=== PATIENT | male | born 1940 | race Caucasian/White ===

== ENCOUNTER → 2016-10-06 | Outpatient (CLI) | payer MEDICARE ==
[~2016-10-06] MED LIST: ALLEREST PO; ASPI-496 PO; CHOL500014 PO; DIGOXIN PO; ENALAPRIL PO; ENOX30SY4 SQ; ERGO500017 PO; GLYB5TAB3 PO; METF500T4 PO; MULT-658 PO; REGADENOSON 0.4 MG/5 ML SYRINGE ONE; SENN25TA21 PO; WARF10TA6 PO; WARF7.5T PO
== END | disposition home or self-care (01) ==
LOC: CFH 11:53
PROVIDERS: ATTEND Family Medicine
DX: I48.0 Paroxysmal atrial fibrillation (principal); R06.02 Shortness of breath
CPT/HCPCS: 78452; 93017; A9502; J2785

== ENCOUNTER → 2016-11-10 | Outpatient (CLI) | payer MEDICARE ==
[2016-11-09 10:11] VITALS: BP 163/73
[2016-11-09 10:54] LABS: BLOOD UREA NITROGEN 11 mg/dL (7-18)
[~2016-11-10] VITALS: Ht 185.4 cm; Wt 110.9 kg
[~2016-11-10] MED LIST changes: +AMIO200T42 PO; +APIX5TAB PO; +ASPI-621 PO; +ATOR10TA PO; +DIGO125T PO; +ENAL10TA PO; +GLIP5TAB10 PO; +KETO15CR TP; +METO25TA35 PO; +OXYC-302 PO; +OXYC1TAB7 PO; -REGADENOSON 0.4 MG/5 ML SYRINGE ONE; +SODIUM CHLORIDE 0.9% 1,000 ML IV SCH; +[UNRECOGNIZED DRUG - OTHER] PO; +mucinex PO
== END | disposition home or self-care (01) ==
LOC: CACL 09:42 → EDSTATUS 11-16 10:30
PROVIDERS: ATTEND Internal Medicine Cardiovascular Disease
DX: Z01.811 Encounter for preprocedural respiratory examination (principal); Z01.812 Encounter for preprocedural laboratory examination; R06.02 Shortness of breath; R93.1 Abnormal findings on diagnostic imaging of heart and coronary circulation; I10 Essential (primary) hypertension; E11.9 Type 2 diabetes mellitus without complications; I20.0 Unstable angina
CPT/HCPCS: 36415; 71020; 80048; 85025; 85610; 85730; 93005

== ENCOUNTER 2016-11-12 08:48 | Inpatient (IN) | payer MEDICARE ==
[~2016-11-12] VITALS: Ht 185.4 cm; Wt 104.7 kg
[~2016-11-12 08:48] MED LIST changes: -AMIO200T42 PO; -APIX5TAB PO; -ASPI-621 PO; -ATOR10TA PO; -DIGO125T PO; -ENAL10TA PO; -GLIP5TAB10 PO; -KETO15CR TP; -METO25TA35 PO; -OXYC-302 PO; -SODIUM CHLORIDE 0.9% 1,000 ML IV SCH; -[UNRECOGNIZED DRUG - OTHER] PO; -mucinex PO
[2016-11-12] MEDS ORDERED: SODIUM CHLORIDE 0.9% 1,000 ML IV SCH (09:15)
[2016-11-12 09:22] VITALS: BP 177/89
[2016-11-12] MEDS ORDERED: ACETAMINOPHEN 325 MG TABLET PO PRN ×2 (09:30→16:00)
[2016-11-12] MEDS ORDERED: ONDANSETRON 2MG/ML, 2ML IVPush PRN ×2 (09:30→16:00)
[2016-11-12] MEDS ORDERED: BISACODYL 10 MG SUPP PR PRN (09:30)
[2016-11-12] MEDS ORDERED: BISACODYL 5 MG EC TABLET PO PRN (09:30)
[2016-11-12] MEDS ORDERED: ASPIRIN 325 MG TABLET EC PO ONE (09:30)
[2016-11-12] MEDS ORDERED: FENTANYL PF 100 MCG/2ML ONE ×4 (10:09→15:07)
[2016-11-12] MEDS ORDERED: MIDAZOLAM 1 MG/ML, 5ML ONE ×2 (10:10→15:07)
[2016-11-12] MEDS ORDERED: LIDOCAINE 2%, 20ML ONE (10:10)
[2016-11-12] MEDS ORDERED: OXYC-302 PO (10:21)
[2016-11-12] MEDS ORDERED: DIGO125T PO (10:21)
[2016-11-12] MEDS ORDERED: ENAL10TA PO (10:21)
[2016-11-12] MEDS ORDERED: GLIP5TAB10 PO (10:29)
[2016-11-12] MEDS ORDERED: ATOR10TA PO (10:29)
[2016-11-12] MEDS ORDERED: mucinex PO (10:29)
[2016-11-12] MEDS ORDERED: KETO15CR TP (10:29)
[2016-11-12] MEDS ORDERED: [UNRECOGNIZED DRUG - OTHER] PO (10:31)
[2016-11-12] MEDS ORDERED: BIVALIRUDIN 250 MG ONE (12:07)
[2016-11-12] MEDS ORDERED: TICAGRELOR 90 MG TABLET ONE (12:12)
[2016-11-12] MEDS ORDERED: HEPARIN 1,000 UNITS/ML, 10ML ONE (12:15)
[2016-11-12] MEDS ORDERED: NITROGLYCERIN 5 MG/ML, 10ML ONE (12:15)
[2016-11-12] MEDS ORDERED: VERAPAMIL 2.5 MG/ML, 2ML ONE (12:16)
[2016-11-12] MEDS ORDERED: FENTANYL PF 100 MCG/2ML IVPush PRN (15:00)
[2016-11-12] MEDS ORDERED: PHENYLEPHRINE 10 MG/ML ONE (15:18)
[2016-11-12] MEDS ORDERED: ZOLPIDEM 5MG TABLET PO PRN (16:00)
[2016-11-12] MEDS ORDERED: METOPROLOL 1 MG/ML, 5ML ONE (16:12)
[2016-11-12] MEDS ORDERED: DILTIAZEM 5 MG/ML, 5ML ONE (16:15)
[2016-11-12] MEDS ORDERED: LABETALOL 5MG/ML, 20ML ONE (16:16)
[2016-11-12] MEDS ORDERED: FUROSEMIDE 40 MG/4 ML ONE (16:24)
[2016-11-12 17:26] LABS: ABG COLLECTION SITE RIGHT RADIAL; COLLATERAL CIRCULATION TESTING NORMAL
[2016-11-12] MEDS ORDERED: OXYcodone/APAP 5/325MG TABLET PO PRN (17:30)
[2016-11-12] MEDS ORDERED: NITROGLYCERIN/D5W PMX 250 ML ONE (17:33)
[2016-11-12] MEDS ORDERED: WARFARIN 10 MG TABLET PO-COUM SCH (18:00)
[2016-11-12] MEDS ORDERED: NITROGLYCERIN/D5W PMX 250 ML IV PRN (18:00)
[2016-11-12] MEDS: FUROSEMIDE 20 MG/2 ML IV SCH (19:33)
[2016-11-12] MEDS: GUAIFENESIN ER 600 MG TABLET PO SCH (20:42)
[2016-11-12] MEDS: ATORVASTATIN 10 MG TABLET PO SCH (20:42)
[2016-11-12] MEDS ORDERED: TICAGRELOR 90 MG TABLET PO SCH (21:00)
[2016-11-12] MEDS: INSULIN ASPART 100 UNITS/ML, PEN SQ-INSULIN SCH (21:29)
[2016-11-12] MEDS: ZOLPIDEM 5MG TABLET PO PRN (23:26)
[2016-11-13] MEDS ORDERED: KETOCONAZOLE CRM 2%, 15GM TP SCH (02:00)
[2016-11-13 04:00] VITALS: BP 88/62
[2016-11-13 04:32] LABS: BLOOD UREA NITROGEN 12 mg/dL (7-18)
[2016-11-13] MEDS: INSULIN ASPART 100 UNITS/ML, PEN SQ-INSULIN SCH ×4 (06:25→20:27)
[2016-11-13] MEDS ORDERED: metFORMIN 500 MG TABLET PO SCH (08:00)
[2016-11-13] MEDS: FUROSEMIDE 20 MG/2 ML IV SCH ×3 (08:06→17:40)
[2016-11-13] MEDS: ASPIRIN 81 MG TABLET EC PO SCH (08:40)
[2016-11-13] MEDS: GUAIFENESIN ER 600 MG TABLET PO SCH ×2 (08:40→20:20)
[2016-11-13] MEDS: MULTIVITAMIN 1 TABLET PO SCH (08:40)
[2016-11-13] MEDS: DIGOXIN 0.125 MG TABLET PO SCH (08:41)
[2016-11-13] MEDS: ENALAPRIL 10 MG TABLET PO SCH (08:41)
[2016-11-13] MEDS ORDERED: ERGOCALCIFEROL 50,000 UNIT CAPSULE PO SCH (17:30)
[2016-11-13] MEDS: METOPROLOL TARTRATE 25 MG TABLET PO SCH (17:40)
[2016-11-13] MEDS ORDERED: WARFARIN 7.5 MG TABLET PO-COUM SCH (18:00)
[2016-11-13] MEDS: ATORVASTATIN 10 MG TABLET PO SCH (20:20)
[2016-11-13] MEDS: ZOLPIDEM 5MG TABLET PO PRN (22:03)
[2016-11-14 05:02] LABS: BLOOD UREA NITROGEN 11 mg/dL (7-18)
[2016-11-14 05:26] LABS: ASPARTATE AMINO TRANSFERASE 14 U/L (15-37)
[2016-11-14] MEDS: INSULIN ASPART 100 UNITS/ML, PEN SQ-INSULIN SCH ×4 (07:00→20:28)
[2016-11-14] MEDS: MULTIVITAMIN 1 TABLET PO SCH (08:32)
[2016-11-14] MEDS: FUROSEMIDE 20 MG/2 ML IV SCH ×2 (08:32→17:32)
[2016-11-14] MEDS: GUAIFENESIN ER 600 MG TABLET PO SCH ×2 (08:32→20:28)
[2016-11-14] MEDS: ASPIRIN 81 MG TABLET EC PO SCH (08:33)
[2016-11-14] MEDS: METOPROLOL TARTRATE 25 MG TABLET PO SCH ×2 (08:33→17:33)
[2016-11-14] MEDS: DIGOXIN 0.125 MG TABLET PO SCH (08:33)
[2016-11-14] MEDS: ENALAPRIL 10 MG TABLET PO SCH (08:33)
[2016-11-14] MEDS ORDERED: HEPARIN 5,000 UNITS/ML, 1ML IV ONE (10:30)
[2016-11-14] MEDS ORDERED: HEPARIN 5,000 UNITS/ML, 1ML IV PRN (10:30)
[2016-11-14] MEDS ORDERED: HEPARIN 25,000 UNITS/500ML PMX 500 ML IV PRN (10:30)
[2016-11-14] MEDS ORDERED: FILTER 0.22 MICRON IV PRN (11:00)
[2016-11-14] MEDS ORDERED: AMIODARONE 150 MG in DEXTROSE 5% 100 ML IV ONE (11:00)
[2016-11-14] MEDS ORDERED: AMIODARONE 900 MG in DEXTROSE 5% 482 ML IV PRN (11:00)
[2016-11-14] MEDS: APIXABAN 5 MG TABLET PO SCH ×2 (11:39→23:58)
[2016-11-14] MEDS: AMIODARONE 200 MG TABLET PO SCH ×2 (11:39→17:32)
[2016-11-14] MEDS: ATORVASTATIN 10 MG TABLET PO SCH (20:28)
[2016-11-15] MEDS: METOPROLOL TARTRATE 25 MG TABLET PO SCH ×2 (06:01→17:48)
[2016-11-15] MEDS: INSULIN ASPART 100 UNITS/ML, PEN SQ-INSULIN SCH ×4 (06:07→20:50)
[2016-11-15] MEDS: FUROSEMIDE 20 MG/2 ML IV SCH (07:30)
[2016-11-15] MEDS: AMIODARONE 200 MG TABLET PO SCH (08:31)
[2016-11-15] MEDS: APIXABAN 5 MG TABLET PO SCH ×2 (08:31→20:46)
[2016-11-15] MEDS: ENALAPRIL 10 MG TABLET PO SCH (08:32)
[2016-11-15] MEDS: ASPIRIN 81 MG TABLET EC PO SCH (08:32)
[2016-11-15] MEDS: GUAIFENESIN ER 600 MG TABLET PO SCH ×2 (08:32→20:46)
[2016-11-15] MEDS: MULTIVITAMIN 1 TABLET PO SCH (08:32)
[2016-11-15 19:41] VITALS: BP 120/66
[2016-11-15] MEDS: ATORVASTATIN 10 MG TABLET PO SCH (20:46)
[2016-11-16 01:02] VITALS: BP 170/73
[2016-11-16] MEDS: METOPROLOL TARTRATE 25 MG TABLET PO SCH (05:13)
[2016-11-16] MEDS: INSULIN ASPART 100 UNITS/ML, PEN SQ-INSULIN SCH ×2 (07:00→11:50)
[2016-11-16 08:55] VITALS: BP 116/52
[2016-11-16] MEDS: MULTIVITAMIN 1 TABLET PO SCH (08:56)
[2016-11-16] MEDS: APIXABAN 5 MG TABLET PO SCH (08:56)
[2016-11-16] MEDS: GUAIFENESIN ER 600 MG TABLET PO SCH (08:56)
[2016-11-16] MEDS: ASPIRIN 81 MG TABLET EC PO SCH (08:56)
[2016-11-16] MEDS: ENALAPRIL 10 MG TABLET PO SCH (08:56)
[2016-11-16] MEDS: AMIODARONE 200 MG TABLET PO SCH (08:57)
[2016-11-16] MEDS ORDERED: APIX5TAB PO (11:10)
[2016-11-16] MEDS ORDERED: ASPI-621 PO (11:10)
[2016-11-16] MEDS ORDERED: AMIO200T42 PO (11:10)
[2016-11-16] MEDS ORDERED: METO25TA35 PO (11:10)
== END 2016-11-16 14:13 | disposition hospice, home (50) | DRG 250 ==
LOC: CACL 08:48 → ORIP 15:40 → CCU 16:46 → OBSVTOIN 11-13 12:14 → 5SO 11-15 12:30
PROVIDERS: ADMIT Internal Medicine Cardiovascular Disease; ATTEND Internal Medicine Cardiovascular Disease
PROC: 02703ZZ Dilation of Coronary Artery, One Artery, Percutaneous Approach (ICD-10-PCS; principal; 2016-11-12)
PROC: 4A023N7 Measurement of Cardiac Sampling and Pressure, Left Heart, Percutaneous Approach (ICD-10-PCS; 2016-11-12)
PROC: B2111ZZ Fluoroscopy of Multiple Coronary Arteries using Low Osmolar Contrast (ICD-10-PCS; 2016-11-12)
PROC: B2151ZZ Fluoroscopy of Left Heart using Low Osmolar Contrast (ICD-10-PCS; 2016-11-12)
PROC: 5A09357 Assistance with Respiratory Ventilation, Less than 24 Consecutive Hours, Continuous Positive Airway Pressure (ICD-10-PCS; 2016-11-13)
DX: I25.84 Coronary atherosclerosis due to calcified coronary lesion (principal); J96.21 Acute and chronic respiratory failure with hypoxia; I50.31 Acute diastolic (congestive) heart failure; D68.69 Other thrombophilia; J98.11 Atelectasis; I48.92 Unspecified atrial flutter; I25.110 Atherosclerotic heart disease of native coronary artery with unstable angina pectoris; I11.0 Hypertensive heart disease with heart failure; D64.9 Anemia, unspecified; E11.9 Type 2 diabetes mellitus without complications; E78.5 Hyperlipidemia, unspecified; I25.5 Ischemic cardiomyopathy; I73.9 Peripheral vascular disease, unspecified; J44.9 Chronic obstructive pulmonary disease, unspecified; I48.2 Chronic atrial fibrillation; Z51.5 Encounter for palliative care; Z79.01 Long term (current) use of anticoagulants; Z85.118 Personal history of other malignant neoplasm of bronchus and lung; Z87.891 Personal history of nicotine dependence; Z90.2 Acquired absence of lung [part of]; Z92.21 Personal history of antineoplastic chemotherapy; Z92.3 Personal history of irradiation; Z99.81 Dependence on supplemental oxygen; Z95.828 Presence of other vascular implants and grafts; I48.0 Paroxysmal atrial fibrillation
CPT/HCPCS: 36415; 36600; 71010; 80048; 80053; 80162; 82040; 82803; 82962; 83036; 85018; 85025; 85610; 87081; 92920; 93005; 93458; 94660; C1760; C1894; G0378; J0583; J1644; J1815; J1940; J2250; J3010; J3490; 92928; C1725; C1769; C1887; J0282; J2370; J7512; Q9967

== ENCOUNTER 2016-12-06 19:18 | Inpatient (IN) | payer MEDICARE, OTHER ==
[~2016-12-06] VITALS: Ht 185.4 cm; Wt 125.0 kg
[~2016-12-06 19:18] MED LIST changes: +AMIO200T42 PO; +APIX5TAB PO; +ASPI-621 PO; +ATOR10TA PO; +DIGO125T PO; +ENAL10TA PO; +GLIP5TAB10 PO; +KETO15CR TP; +METO25TA35 PO; +OXYC-302 PO; +[UNRECOGNIZED DRUG - OTHER] PO; +mucinex PO
[2016-12-06] MEDS ORDERED: ALBUTEROL/IPRATROPIUM 2.5MG/0.5MG, 3 ML ONE (19:25)
[2016-12-06] MEDS ORDERED: SODIUM CHLORIDE FLUSH 10ML SYR IVF ONE (19:30)
[2016-12-06] MEDS ORDERED: methylPREDNISolone SOD SUCC 125 MG/2 ML IVP ONE (19:30)
[2016-12-06] MEDS ORDERED: LORazepam 2 MG/ML, 1ML ONE (19:37)
[2016-12-06] MEDS ORDERED: morphine SULFATE 125 MG in SODIUM CHLORIDE 0.9% 237.5 ML IV PRN (19:42)
[2016-12-06] MEDS ORDERED: methylPREDNISolone SOD SUCC 125 MG/2 ML ONE (19:48)
[2016-12-06] MEDS ORDERED: SCOPOLAMINE PATCH, 1.5MG PATCH.TD72 TD PRN (20:00)
[2016-12-06] MEDS ORDERED: ATROPINE OPHTH SOLN 1%, 5ML BC PRN (20:00)
[2016-12-06] MEDS ORDERED: LORazepam 2 MG/ML, 1ML IVPush PRN (20:00)
[2016-12-06] MEDS ORDERED: LORazepam 2 MG/ML, 1ML IVPush ONE (20:00)
[2016-12-07 09:05] VITALS: BP 113/72
[2016-12-07 13:35] VITALS: BP 109/67
== END 2016-12-07 18:00 | disposition hospice, home (50) | DRG 189 ==
LOC: ED 19:30 → EDIP 19:37 → SUATTDRO 19:40 → ED 19:45 → 3NW 20:20
PROC: 5A09357 Assistance with Respiratory Ventilation, Less than 24 Consecutive Hours, Continuous Positive Airway Pressure (ICD-10-PCS; principal; 2016-12-06)
DX: J96.01 Acute respiratory failure with hypoxia (principal); J44.1 Chronic obstructive pulmonary disease with (acute) exacerbation; I50.32 Chronic diastolic (congestive) heart failure; I48.92 Unspecified atrial flutter; D68.69 Other thrombophilia; Z51.5 Encounter for palliative care; E78.5 Hyperlipidemia, unspecified; F17.200 Nicotine dependence, unspecified, uncomplicated; I11.0 Hypertensive heart disease with heart failure; I25.10 Atherosclerotic heart disease of native coronary artery without angina pectoris; I48.2 Chronic atrial fibrillation; E11.51 Type 2 diabetes mellitus with diabetic peripheral angiopathy without gangrene; Z66 Do not resuscitate; Z79.01 Long term (current) use of anticoagulants; Z85.118 Personal history of other malignant neoplasm of bronchus and lung; Z99.81 Dependence on supplemental oxygen
CPT/HCPCS: 93005; 96374; J2270; J2930; J7050